=== PATIENT | male | born 1970 | race Caucasian/White ===

== ENCOUNTER 2018-02-20 19:29 | Emergency (ER) | payer BC ==
[~2018-02-20] VITALS: Ht 188 cm; Wt 64.0 kg
[2018-02-20] MEDS ORDERED: BL ASPIRIN325 MG PO (19:43)
[2018-02-20 21:19] VITALS: BP 145/92
== END 2018-02-20 21:19 | disposition home or self-care (01) | DRG 605 ==
LOC: ED 19:29
DX: S20.222A Contusion of left back wall of thorax, initial encounter (principal); W18.2XXA Fall in (into) shower or empty bathtub, initial encounter; Y93.E1 Activity, personal bathing and showering; Y92.002 Bathroom of unspecified non-institutional (private) residence as the place of occurrence of the external cause

== ENCOUNTER 2018-11-19 15:28 | Emergency (ER) | payer BC ==
[~2018-11-19] VITALS: Ht 188 cm; Wt 60.0 kg
[~2018-11-19 15:28] MED LIST: BL ASPIRIN325 MG PO
[2018-11-19 16:28] LABS: HEMATOCRIT 42.9 % (39.0-50.0); IMMATURE GRANULOCYTES 0.5 % (0.0-5.0); MEAN CELL VOLUME 91.9 fL CALC (80.0-100.0); MEAN CORPUSCULAR HGB 32.1 pG CALC (26.0-32.0); NEUT# 9.05 thou/uL (1.82-7.42); RED BLOOD COUNT 4.67 mill/uL (4.70-6.10); RED CELL DISTRI WIDTH 12.6 % (11.5-15.5)
[2018-11-19 16:40] LABS: URINE BLOOD DIPSTICK NEGATIVE (NEGATIVE); URINE COLOR YELLOW; URINE GLUCOSE - DIPSTICK NEGATIVE (NEGATIVE); URINE KETONE 15 mg/dL (NEGATIVE); URINE LEUK ESTERASE NEGATIVE (NEGATIVE); URINE NITRITE - DIPSTICK NEGATIVE (Negative); URINE PROTEIN - DIPSTICK TRACE mg/dL (NEG-TRACE); URINE SPECIFIC GRAVITY 1.015; URINE UROBILINOGEN - DIPSTICK 0.2 E.U./dL (0.2)
[2018-11-19 16:42] LABS: ALKALINE PHOSPHATASE 68 u/l (38-126); ANION GAP 16 (6-22 (CALC)); BILIRUBIN, TOTAL 0.9 mg/dL (0.0-1.4); BUN 6 mg/dL (9-20); BUN/CREATININE RATIO 8 (12-20 (CALC)); CARBON DIOXIDE 26 mmol/l (22-30); CHLORIDE 98 mmol/l (95-108); CREATININE 0.7 mg/dL (0.7-1.3); GFR > 60 ML/MIN (>=60 (CALC)); GFR FOR AFR.AMER. > 60 ML/MIN (>=60 (CALC)); LIPASE 77 u/l (23-300); POTASSIUM 3.8 mmol/l (3.5-5.1); SGOT/AST 44 u/l (17-59); SODIUM 136 mmol/l (137-146); TOTAL PROTEIN 8.4 g/dL (6.3-8.2)
[2018-11-19 16:50] LABS: URINE BILIRUBIN - DIPSTICK SMALL (NEGATIVE)
[2018-11-19 17:19] VITALS: BP 173/96
== END 2018-11-19 17:29 | disposition home or self-care (01) | DRG 897 ==
LOC: ED 15:28
PROVIDERS: Family Medicine
DX: F10.188 Alcohol abuse with other alcohol-induced disorder (principal); G25.2 Other specified forms of tremor; F17.220 Nicotine dependence, chewing tobacco, uncomplicated

== ENCOUNTER 2023-09-30 11:16 | Emergency (ER) | payer BC ==
[2023-09-30] VITALS (14 sets, daily range): BP systolic 124–156; BP diastolic 75–92
[~2023-09-30] VITALS: Ht 188 cm; Wt 63.5 kg
[2023-09-30] MEDS ORDERED: FAMOTIDINE 10MG/ML 2ML SDV IV ONE (12:55)
[2023-09-30] MEDS ORDERED: SODIUM CHLORIDE 0.9% 1,000 ML IV ONE (12:55)
[2023-09-30 13:21] LABS: ALBUMIN 4.3 g/dL (3.2-5.0); BILIRUBIN, TOTAL 0.8 mg/dL (0.2-1.3); CREATININE 1.1 mg/dL (0.7-1.3); POTASSIUM 4.3 mmol/l (3.5-5.1); TOTAL PROTEIN 7.4 g/dL (6.3-8.2)
[2023-09-30 13:32] LABS: BASO% 0.6 % (0-3); EOS% 0.4 % (0-8); HEMOGLOBIN 13.4 g/dl (14.0-18.0); IMMATURE GRANULOCYTES 0.6 % (0.0-5.0); LYMPH% 8.6 % (15-41); MEAN CELL VOLUME 92.4 fL CALC (80.0-100.0); MEAN CORPUSCULAR HGB 31.8 pG CALC (26.0-32.0); MEAN CORPUSCULAR HGB CONC 34.4 g/dL CAL (32.0-36.0); MONO% 9.6 % (2-13); NEUT# 6.77 thou/uL (1.82-7.42); NEUT% 80.2 % (42-76); RED BLOOD COUNT 4.22 mill/uL (4.70-6.10)
== END 2023-09-30 16:00 | disposition left against medical advice (07) | DRG 641 ==
LOC: ED 11:16
PROVIDERS: Nurse Practitioner
DX: E87.1 Hypo-osmolality and hyponatremia (principal); F10.10 Alcohol abuse, uncomplicated; Z72.0 Tobacco use; Z53.29 Procedure and treatment not carried out because of patient's decision for other reasons